=== PATIENT | female | born 2000 | race Caucasian/White ===

== ENCOUNTER 2021-06-12 23:07 | Inpatient (IN) | payer MEDICAID ==
[2021-06-12] MEDS ORDERED: Nalbuphine 10 MG/1 ML Vial IVPUSH PRN (23:18)
[2021-06-12] MEDS ORDERED: Lidocaine 1% 50 ML MDV INJECT ONE (23:18)
[2021-06-12] MEDS: Lactated Ringers 1,000 ML IV SCH (23:26)
[2021-06-12] MEDS ORDERED: Oxytocin/Lactated Ringers 10 UNIT/1,000 ML BAG IV SCH (23:30)
[2021-06-12] MEDS ORDERED: diphenhydrAMINE 50 MG/ML SDV IVPUSH PRN (23:50)
[2021-06-12] MEDS ORDERED: Bupivacaine/fentaNYL/NS 100 ML Bag EPIDUR PRN (23:50)
[2021-06-12] MEDS ORDERED: fentaNYL 100 MCG/2 ML SDV EPIDUR PRN (23:50)
[2021-06-12] MEDS ORDERED: ePHEDrine 50 MG/ML SDV IVPUSH PRN (23:50)
[2021-06-13] MEDS ORDERED: Bupivacaine 0.25% 10 ML SDV ONE
[2021-06-13] MEDS: Lactated Ringers 1,000 ML IV SCH (00:16)
[2021-06-13] MEDS ORDERED: Witch Hazel Medicated Pads 40/Jar TOP PRN (02:03)
[2021-06-13] MEDS ORDERED: Benzocaine/Menthol 20%-0.5% Spray 78 GM Cannister TOP PRN (02:03)
[2021-06-13] MEDS: Acetaminophen 325 MG Tab PO PRN ×3 (02:21→20:10)
[2021-06-13] MEDS ORDERED: Alum Hydrox/Mag Hydrox/Simeth 30 ML, Lidocaine 2% 15 ML PO ONE ×2 (07:09)
[2021-06-13] MEDS: Ibuprofen 600 MG Tab PO PRN ×3 (07:45→21:32)
[2021-06-13] MEDS: Docusate Sodium 100 MG Cap PO PRN (07:46)
[2021-06-13] MEDS ORDERED: Calcium Carbonate 500 MG Tab.Chew PO PRN (15:15)
[2021-06-14] MEDS: Ibuprofen 600 MG Tab PO PRN (03:01)
[2021-06-14] MEDS: Acetaminophen 325 MG Tab PO PRN (03:01)
[2021-06-14] MEDS: Docusate Sodium 100 MG Cap PO PRN (03:01)
== END 2021-06-14 11:28 | disposition home or self-care (01) | DRG 807 ==
LOC: JD.OBCHECK 23:07 → JD.OB 23:08 → JD.OBCHECK 23:50 → JD.OB 23:51 → OBSVTOIN 06-13 01:36 → JD.OB 06-13 01:37
PROVIDERS: ADMIT Obstetrics & Gynecology; ATTEND Obstetrics & Gynecology
PROC: 10E0XZZ Delivery of Products of Conception, External Approach (ICD-10-PCS; principal; 2021-06-13)
PROC: 10907ZC Drainage of Amniotic Fluid, Therapeutic from Products of Conception, Via Natural or Artificial Opening (ICD-10-PCS; 2021-06-13)
PROC: 3E0R3BZ Introduction of Anesthetic Agent into Spinal Canal, Percutaneous Approach (ICD-10-PCS; 2021-06-13)
PROC: 00HU33Z Insertion of Infusion Device into Spinal Canal, Percutaneous Approach (ICD-10-PCS; 2021-06-13)
DX: O71.82 Other specified trauma to perineum and vulva (principal); Z37.0 Single live birth; Z3A.39 39 weeks gestation of pregnancy
CPT/HCPCS: 36415; 51701; 59025; 59409; 85025; 86592; 86850; 86900; 86901; A9270-GY; J2590; J3010; J3490; J7120